=== PATIENT | male | born 1990 | race Caucasian/White ===

== ENCOUNTER 2018-12-24 17:56 | Emergency (ER) | payer SELFPAY ==
--- NOTE | 2018-12-24 18:26 | Emergency Department Record ---
History of Present Illness - General Chief Complaint: Animal Bite Stated Complaint: LT HAND DOG BITE Time Seen by Provider: 12/24/18 18:10 Source: Patient, RN notes reviewed Mode of Arrival: Ambulatory - History of Present Illness Initial Comments: bog bite to the left hand on the dorsum of the hand and the fifth finger. Family dogs were fighting and he tried to break them up. MD Complaint: Animal bite Onset/Timin -: Minutes(s) Animal: Dog Description: Household pet Context: Animals fighting Associated Symptoms: Bleeding, Other - Related Data Previous Rx's Medication Instructions Recorded Cephalexin [Keflex] 500 mg PO QID #20 cap 12/24/18 Naproxen [Naprosyn] 500 mg PO Q12H #20 tab. 12/24/18 Allergies Allergy/AdvReac Type Severity Reaction Status Date / Time No Known Drug Allergies Allergy Verified 12/24/18 18:18 Travel Screening - Travel/Exposure Within Last 30 Days Have you traveled within the last 30 days?: No - Travel/Exposure Within Last Year Have you traveled outside the [place] in the last year?: No - Additonal Travel Details Have you been exposed to anyone with a communicable illness?: No Review of Systems Reviewed: No additional complaints except as noted below Constitutional: Reports: As per HPI. Denies: Chills, Fever, Malaise, Night sweats, Weakness, Weight change Eyes: Reports: As per HPI. Denies: Eye discharge, Eye pain, Photophobia, Vision change ENT: Reports: As per HPI. Denies: Congestion, Dental pain, Ear pain, Epistaxis, Hearing loss, Throat pain Respiratory: Reports: As per HPI. Denies: Cough, Dyspnea, Hemoptysis, Stridor, Wheezes Cardiovascular: Reports: As per HPI. Denies: Arrhythmia, Chest pain, Dyspnea on exertion, Edema, Murmurs, Orthopnea, Palpitations, Paroxysmal nocturnal dyspnea, Rheumatic Fever, Syncope Endocrine: Reports: As per HPI. Denies: Fatigue, Heat or cold intolerance, Polydipsia, Polyuria Gastrointestinal: Reports: As per HPI. Denies: Abdominal pain, Constipation, Diarrhea, Hematemesis, Hematochezia, Melena, Nausea, Vomiting Genitourinary: Reports: As per HPI. Denies: Dysuria, Frequency, Hematuria, Incontinence, Retention, Testicular pain, Testicular mass, Urgency Musculoskeletal: Reports: As per HPI. Denies: Arthralgia, Back pain, Gout, Joint swelling, Myalgia, Neck pain Skin: Reports: As per HPI. Denies: Bruising, Change in color, Change in hair/nails, Lesions, Pruritus, Rash Neurological: Reports: As per HPI. Denies: Abnormal gait, Confusion, Headache, Numbness, Paresthesias, Seizure, Tingling, Tremors, Vertigo, Weakness Psychiatric: Reports: As per HPI. Denies: Anxiety, Auditory hallucinations, Depression, Homicidal thoughts, Suicidal thoughts, Visual hallucinations Hematological/Lymphatic: Reports: As per HPI. Denies: Anemia, Blood Clots, Easy bleeding, Easy bruising, Swollen glands Past Medical History - SOCIAL HISTORY Smoking Status: Current every day smoker Alcohol Use: Rare Drug Use: None - RESPIRATORY Hx Respiratory Disorders: No - CARDIOVASCULAR Hx Cardio Disorders: No - NEURO Hx Neuro Disorders: No - GI Hx GI Disorders: No - Hx Genitourinary Disorders: No - ENDOCRINE Hx Endocrine Disorders: No - MUSCULOSKELETAL Hx Musculoskeletal Disorders: No - PSYCH Hx Psych Problems: No - HEMATOLOGY/ONCOLOGY Hx Hematology/Oncology Disorders: No Family Medical History Any Significant Family History?: No Physical Exam - General General Appearance: Alert, Oriented x3, Cooperative, No acute distress - Head Head exam: Normal inspection - Eye Eye exam: Normal appearance, PERRL Pupils: Normal accommodation - ENT ENT exam: Normal exam, Mucous membranes moist, Normal external ear exam, Normal orophraynx, TM's normal bilaterally Ear exam: Normal external inspection. negative: External canal tenderness Nasal Exam: Normal inspection. negative: Discharge, Sinus tenderness Mouth exam: Normal external inspection, Tongue normal Teeth exam: Normal inspection. negative: Dental caries Throat exam: Normal inspection. negative: Tonsillar erythema, Tonsillar exudate - Neck Neck exam: Normal inspection, Full ROM. negative: Tenderness - Respiratory Respiratory exam: Normal lung sounds bilaterally. negative: Respiratory distress - Cardiovascular Cardiovascular Exam: Regular rate, Normal rhythm, Normal heart sounds - GI/Abdominal GI/Abdominal exam: Soft, Normal bowel sounds. negative: Tenderness - Rectal Rectal exam: Deferred - exam: Deferred - Extremities Extremities exam: Full ROM, Normal capillary refill, Other (laceation on dorsum of hand). negative: Tenderness - Back Back exam: Reports: Normal inspection, Full ROM. Denies: Muscle spasm, Rash noted, Tenderness - Neurological Neurological exam: Alert, Normal gait, Oriented X3, Reflexes normal - Psychiatric Psychiatric exam: Normal affect, Normal mood - Skin Skin exam: Dry, Intact, Normal color, Warm Course Vital Signs 12/24/18 18:10 Pulse Rate [ 120 H Right] Respiratory 18 Rate Blood Pressure 171/118 [Right Arm] Pulse Ox 94 L - Reevaluation(s) Reevaluation #1: laceration on dorsum of hand left 4 cmc long ,full rom of fingers and good extensor strength,explained to patient risk of infection goes up with sutures and will wash and leave it open and have him follow up with a hand Dr. anestezized with 1% lidocaine and washed with shurclens and irrigated, left little finger laceration cleaned and left open also. 12/24/18 18:23 12/24/18 19:02 left finger wound is a puncture wound ,corsum or the hand is 4cm left open Medical Decision Making - Data Complexity MDM Data: X-Ray Ordered and/or Reviewed (neg for fractures) Disposition Clinical Impression: Dog bite Qualifiers: Encounter type: initial encounter Qualified Code(s): W54.0XXA - Bitten by dog, initial encounter Disposition: Home, Self-Care Condition: (2) Stable Instructions: Animal Bite (ED) Additional Instructions: follow up with Dr Mccracken [phone] in one day Prescriptions: Cephalexin [Keflex] 500 mg PO QID #20 cap Naproxen [Naprosyn] 500 mg PO Q12H #20 tab.dr Forms: Patient Portal Access Time of Disposition: 19:01 Quality - Quality Measures Quality Measures: N/A - Blood Pressure Screening Does Patient Have Any of the Following: No Blood Pressure Classification: Hypertensive Reading Systolic Measurement: 171 Diastolic Measurement: 118 Screening for High Blood Pressure: < First Hypertensive BP, F/U Documented > [G8950] First Hypertensive Follow-up Interventions: Follow-up with rescreen GT 1 day and LT 4 weeks.
[2018-12-24] MEDS ORDERED: CEPHALEXIN 500 MG CAPSULE PO STA (19:01)
--- NOTE | 2018-12-25 13:24 | RADIOLOGY REPORT ---
EXAM: LEFT HAND, THREE VIEWS HISTORY: DOG BITE. TECHNIQUE: Three views of the left hand were obtained. Comparison: None. Encounter: Initial. FINDINGS: There is normal bone mineralization. No fracture, dislocation, nor destructive bone lesion. The articular relations are maintained. No periarticular erosion. There is dorsal soft tissue swelling and soft tissue emphysema centered at the metacarpal level as seen on the lateral view. IMPRESSION: 1. NO ACUTE BONE NOR JOINT ABNORMALITY. 2. DORSAL SOFT TISSUE SWELLING AND SOFT TISSUE EMPHYSEMA AT THE SECOND THROUGH FIFTH METACARPAL LEVEL. NO FOREIGN BODY IDENTIFIED. JOB NUMBER: [id number] [facility]
== END 2018-12-24 19:18 | disposition home or self-care (01) ==
LOC: ER 17:56
DX: S61.452A Open bite of left hand, initial encounter (principal); W54.0XXA Bitten by dog, initial encounter; Y92.009 Unspecified place in unspecified non-institutional (private) residence as the place of occurrence of the external cause; F17.210 Nicotine dependence, cigarettes, uncomplicated
CPT/HCPCS: 99283